=== PATIENT | male | born 1950 | race Caucasian/White ===

== ENCOUNTER 2016-06-17 17:18 | Emergency (ER) | payer OTHER ==
[2016-06-17] MEDS ORDERED: OXYCODONE HCL 5 MG TABLET ONE (18:00)
[2016-06-17] MEDS ORDERED: DIPHTH,PERTUSS(ACELL),TET VAC 0.5 ML VIAL IM V ONE (18:00)
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
== END 2016-06-17 19:51 | disposition home or self-care (01) ==
LOC: ED 17:18
DX: S82.402A Unspecified fracture of shaft of left fibula, initial encounter for closed fracture (principal); S00.01XA Abrasion of scalp, initial encounter; S50.312A Abrasion of left elbow, initial encounter; M25.559 Pain in unspecified hip; F17.210 Nicotine dependence, cigarettes, uncomplicated; Z23 Encounter for immunization; V09.20XA Pedestrian injured in traffic accident involving unspecified motor vehicles, initial encounter; Y93.55 Activity, bike riding; Y92.410 Unspecified street and highway as the place of occurrence of the external cause
CPT/HCPCS: 90715; 73610; 73080; 73502; 73564; 70450; 90471; 99284; 99283; A9270